=== PATIENT | female | born 1995 | race Caucasian/White ===

== ENCOUNTER 2018-09-17 06:00 | Inpatient (IN) ==
[2018-09-17] MEDS ORDERED: BUTORPHANOL 2 MG/ML VIAL IV PRN (06:59)
[2018-09-17] MEDS ORDERED: ONDANSETRON 4 MG/2 ML VIAL IV PRN (06:59)
[2018-09-17] MEDS: LACTATED RINGERS 1,000 ML IV SCH ×3 (07:15→17:06)
[2018-09-17 07:18] LABS: Basophils % 0.4 % (0.0-0.8); Eosinophils # 0.1 10*3/uL (0.0-0.87); Eosinophils % 1.2 % (0.00-10.9); Hematocrit 32.2 VOL% (35.7-47.0); Hemoglobin 9.8 GM/DL (12.0-16.0); Immature Granulocytes % 0.5 %; Immature Granulocytes Absolute 0.04 #; Lymphocytes # 1.6 10*3/uL (1.4-4.0); Lymphocytes % 19.6 % (21.3-54.2); Mean Corpuscular HGB Conc 30.4 GM/DL (32-36); Mean Platelet Volume 11.8 FL (9.6-12.0); Monocytes % 9.3 % (1.7-12.7); Platelet Count 182 T/CUMM (130-400); Red Blood Count 3.66 MC/CUMM (3.8-5.5); Red Cell Distribution Width 14.3 % (9.3-17.3); White Blood Count 8.4 T/CUMM (4-12)
[2018-09-17 07:58] LABS: Albumin 2.6 G/DL (3.4-5.0); Bilirubin,Total 0.5 MG/DL (0.2-1.0); Calcium 8.1 MG/DL (8.5-10.1); Osmolality,Calculated 270.8 MOS/KG (273-304); Total Protein 6.1 G/DL (6.4-8.3)
[2018-09-17] MEDS: OXYTOCIN/LR 20 UNIT/1,000 ML BAG IV SCH (08:32)
[2018-09-17] MEDS ORDERED: ePHEDrine 50 MG/ML AMP IV PRN (14:10)
[2018-09-17] MEDS ORDERED: PROMETHAZINE 25 MG/1 ML VIAL IM ONE (14:10)
[2018-09-17] MEDS ORDERED: diphenhydrAMINE 50 MG/1 ML VIAL IV PRN ×2 (14:10)
[2018-09-17] MEDS ORDERED: NALOXONE 0.4 MG/ML VIAL IV PRN (14:10)
[2018-09-17] MEDS ORDERED: hydrOXYzine HCL 25 MG/1 ML VIAL IM PRN (14:10)
[2018-09-17] MEDS ORDERED: FAMOTIDINE 20 MG/2 ML VIAL IV ONE (14:12)
[2018-09-17] MEDS ORDERED: CITRIC ACID/SODIUM CITRATE 30 ML UDCUP PO ONE (14:12)
[2018-09-17] MEDS ORDERED: fentaNYL 2 MCG/ROPIV 0.2% EPID 100 ML EPIDURAL SCH (14:30)
[2018-09-17 19:30] LABS: Apearance,Urine CLEAR (Clear); Bacteria,Urine Occasional /HPF (Few); Bilirubin,Urine Negative (Negative); Blood, Urine Negative (Negative); Glucose,Urine (UA) Negative (Negative); Ketones,Urine Negative (Negative); Mucus,Urine Occasional /LPF (Occasional); Nitrite,Urine Negative (Negative); Protein,Urine Negative; Urine Color Straw (Yellow); Urine Specific Gravity 1.008 (1.001-1.035); Urine Urobilinogen < 2.0 EU/DL (0.2-1.0); WBC,Urine <1 /HPF (0-6)
[2018-09-18] MEDS: OXYTOCIN/LR 20 UNIT/1,000 ML BAG IV SCH (06:11)
[2018-09-18] MEDS: IBUPROFEN 800 MG TABLET PO PRN ×2 (06:53→20:11)
[2018-09-18] MEDS ORDERED: BENZOCAINE 20%/MENTHOL 0.5% SPRAY 56 GM CAN TOP PRN (13:30)
[2018-09-18] MEDS: DOCUSATE SODIUM 100 MG CAPSULE PO SCH (20:11)
[2018-09-19 05:55] LABS: Basophils % 0.3 % (0.0-0.8); Eosinophils # 0.3 10*3/uL (0.0-0.87); Eosinophils % 2.4 % (0.00-10.9); Hematocrit 27.3 VOL% (35.7-47.0); Hemoglobin 8.2 GM/DL (12.0-16.0); Immature Granulocytes % 0.5 %; Immature Granulocytes Absolute 0.05 #; Lymphocytes # 2.2 10*3/uL (1.4-4.0); Lymphocytes % 20.9 % (21.3-54.2); Mean Corpuscular Volume 87.5 FL (87-102); Mean Platelet Volume 12.5 FL (9.6-12.0); Monocytes % 8.3 % (1.7-12.7); Neutrophils % 67.6 % (38.7-73.9); Platelet Count 166 T/CUMM (130-400); Red Blood Count 3.12 MC/CUMM (3.8-5.5); Red Cell Distribution Width 14.5 % (9.3-17.3); White Blood Count 10.3 T/CUMM (4-12)
[2018-09-19] MEDS: IBUPROFEN 800 MG TABLET PO PRN (08:16)
[2018-09-19] MEDS: DOCUSATE SODIUM 100 MG CAPSULE PO SCH (08:16)
[2018-09-19 11:42] VITALS: BP 137/81
== END 2018-09-19 16:00 | disposition home or self-care (01) | DRG 807 ==
LOC: N.LD 06:00 → N.OB 09-18 10:15
PROVIDERS: ADMIT Obstetrics & Gynecology; ATTEND Obstetrics & Gynecology